=== PATIENT | male | born 1985 | race Caucasian/White ===

== ENCOUNTER 2018-04-04 12:26 | Emergency (ER) | payer MEDICAID ==
[~2018-04-04] VITALS: Ht 167.6 cm; Wt 72.7 kg
[2018-04-04 12:44] VITALS: BP 145/102
[2018-04-04] MEDS ORDERED: ALPR-624 PO (14:06)
== END 2018-04-04 14:36 | disposition home or self-care (01) ==
LOC: ER 12:28
DX: F41.9 Anxiety disorder, unspecified (principal); Z76.0 Encounter for issue of repeat prescription; Z88.0 Allergy status to penicillin
CPT/HCPCS: 99283